=== PATIENT | male | born 1970 | race Two or more races ===

== ENCOUNTER 2020-12-07 14:10 | Emergency (ER) | payer BC ==
--- NOTE | 2020-12-07 15:33 | EDM.PDOC ---
ED HPI GENERAL MEDICAL PROBLEM - General Chief Complaint: Lower Extremity Injury/Pain Stated Complaint: ROLLED R ANKLE Time Seen by Provider: 12/07/20 14:21 Source of Information: Reports: Patient, RN Notes Reviewed History Limitations: Reports: No Limitations - History of Present Illness INITIAL COMMENTS - FREE TEXT/NARRATIVE: Patient is a 50-year-old male presenting to the emergency department with complaints of pain and swelling to his right ankle. States that he rolled it Arturo evening and has been having pain and swelling since that time. He has been icing elevating over the weekend and thinks that the pain is improving but he wants to ensure that it is not fractured. He states that he was intoxicated at the time of the injury so he is not completely sure of the mechanism of injury, however he does know that he misstepped on a stair. His thinks he likely inverted his ankle. Denies any previous injuries to this ankle. He has been able to ambulate since the time of the injury. right ankle Pain Score (Numeric/FACES): 4 - Related Data Allergies Allergy/AdvReac Type Severity Reaction Status Date / Time No Known Allergies Allergy Verified 12/07/20 14:35 Home Meds: Home Meds . [Unable to Verify Home Med List] 12/07/20 [History] Past Medical History Cardiovascular History: Reports: Hypertension Social & Family History - Tobacco Use Tobacco Use Status *Q: Never Tobacco User - Recreational Drug Use Recreational Drug Use: No Review of Systems - Review of Systems Review Of Systems: Comprehensive ROS is negative, except as noted in HPI. ED EXAM, GENERAL - Physical Exam Exam: See Below Exam Limited By: No Limitations General Appearance: Alert, WD/WN, No Apparent Distress Respiratory/Chest: No Respiratory Distress, Lungs Clear, Normal Breath Sounds, No Accessory Muscle Use, Chest Non-Tender Cardiovascular: Normal Peripheral Pulses, Regular Rate, Rhythm, No Edema, No Gallop, No JVD, No Murmur, No Rub Extremities: Other (Generalized swelling to the right ankle. Ecchymosis and tenderness to palpation to the anterior aspect of the ankle. No obvious deformity. CMS intact distal to the injury.) Neurological: Alert, Oriented, CN II-XII Intact, Normal Cognition, Normal Gait, Normal Reflexes, No Motor/Sensory Deficits Psychiatric: Normal Affect, Normal Mood Course - Vital Signs Last Recorded V/S: Last Vital Signs Temp 97.3 F 02/14/21 14:32 Pulse 63 12/07/20 14:32 Resp 18 12/07/20 14:32 BP 161/103 H 12/07/20 14:32 Pulse Ox - Orders/Labs/Meds Orders: Active Orders 24 hr Category Date Time Status Ankle Min 3V Rt [CR] Stat Exams 12/07/20 14:38 Taken - Re-Assessments/Exams Free Text/Narrative Re-Assessment/Exam: 12/07/20 16:10 Official radiologist read of the x-ray of the right ankle shows no acute fractures. Recommend that he continue to Duarte wrap ice and elevate. Tylenol ibuprofen as needed. Discharge instructions as documented. Departure - Departure Time of Disposition: 16:11 Disposition: Home, Self-Care 01 Condition: Good Clinical Impression: Sprain of ankle, right Qualifiers: Encounter type: initial encounter Involved ligament of ankle: unspecified ligament Qualified Code(s): S93.401A - Sprain of unspecified ligament of right ankle, initial encounter - Discharge Information *PRESCRIPTION DRUG MONITORING PROGRAM REVIEWED*: No *COPY OF PRESCRIPTION DRUG MONITORING REPORT IN PATIENT GILMA: No Instructions: Ankle Sprain, [id number] Referrals: Kathy Walker, [employer] [facility] [facility] [Primary Care Provider] - Forms: ED Department Discharge Additional Instructions: You were seen in the emergency department today for evaluation with regards to pain and swelling to your right ankle. X-rays are completed and showed no fracture. It is likely at you have sprained your ankle. Recommend that you continue to use the Duarte wrap, ice, and elevation as needed. [id number] Tylenol or ibuprofen may be used for discomfort. If you continue to have significant discomfort after 1 week, recommend follow-up in the clinic for reevaluation. Return to ER as needed. Sepsis Event Note (ED) - Evaluation Sepsis Screening Result: No Definite Risk - Focused Exam Vital Signs: Vital Signs Temp Pulse Resp BP 12/07/20 14:32 97.3 F 63 18 161/103 H - My Orders Last 24 Hours: My Active Orders 12/07/20 14:38 Ankle Min 3V Rt [CR] Stat - Assessment/Plan Last 24 Hours: My Active Orders 12/07/20 14:38 Ankle Min 3V Rt [CR] Stat
--- NOTE | 2020-12-08 11:14 | CR ---
Right ankle: 3 views centered to the right ankle were obtained. Comparison: No prior ankle study. Irregularity is noted within the posterior malleolus most likely related to previous ankle injury. Ankle mortise is symmetric. No definite acute fracture, dislocation or other bony abnormality is apparent. Soft tissue swelling is noted. Impression: 1. Soft tissue swelling. 2. Findings most likely due to old injury within the posterior malleolus. 3. No acute osseous abnormality is appreciated. Diagnostic code #2 I agree with preliminary report from [facility], finalized on 0 12/07/20, 4:[address] REPORTER DESI
== END 2020-12-07 16:18 | disposition home or self-care (01) ==
LOC: JD.ED 14:10
DX: S93.401A Sprain of unspecified ligament of right ankle, initial encounter (principal); I10 Essential (primary) hypertension; X50.1XXA Overexertion from prolonged static or awkward postures, initial encounter
CPT/HCPCS: 73610-26-RT; 73610-RT; 99282; 99283

== ENCOUNTER 2020-12-30 22:57 | Emergency (ER) | payer BC ==
[2020-12-30] MEDS ORDERED: Sodium Chloride 0.9% 10 ML Syringe FLUSH PRN (23:10)
[2020-12-30] MEDS ORDERED: HYDROmorphone 1 MG/ML Syringe IVPUSH ONE (23:11)
[2020-12-30] MEDS ORDERED: Ketorolac 30 MG/ML SDV IVPUSH ONE (23:11)
--- NOTE | 2020-12-30 23:17 | EDM.PDOC ---
ED HPI GENERAL MEDICAL PROBLEM - General Chief Complaint: Lower Extremity Injury/Pain Stated Complaint: hip injury Time Seen by Provider: 12/30/20 23:05 Source of Information: Reports: Patient, Family History Limitations: Reports: No Limitations - History of Present Illness INITIAL COMMENTS - FREE TEXT/NARRATIVE: The patient presents with left hip and pelvis pain. This has been going on for a couple of days. He does not remember hurting it like falling, lifting or twisting. The pain is not in his back. He has no numbness or weakness. He has no fever, chills, cough, chest pain, shortness of breath, abdominal pain, nausea or vomiting. He has never had trouble with the hip before. He did sprain his right ankle a week ago. He is not sure if he was favoring that ankle and putting more pressure on the left hip. Onset: Gradual Duration: Day(s): (2) Location: Reports: Lower Extremity, Left (hip and pelvis) Quality: Reports: Sharp Severity: Severe Improves with: Reports: Immobilization Worsens with: Reports: Movement Context: Denies: Trauma Associated Symptoms: Reports: No Other Symptoms Left Hip Pain Score (Numeric/FACES): 10 - Related Data Allergies Allergy/AdvReac Type Severity Reaction Status Date / Time No Known Allergies Allergy Verified 12/30/20 23:08 Home Meds: Home Meds Citalopram Hydrobromide [Celexa] 40 mg PO DAILY 12/30/20 [History] Potassium Chloride 20 meq PO DAILY 12/30/20 [History] Spironolactone 50 mg PO DAILY 12/30/20 [History] amLODIPine Besylate [Amlodipine Besylate] 10 mg PO DAILY 12/30/20 [History] atenoloL [Atenolol] 50 mg PO DAILY 12/30/20 [History] Past Medical History Cardiovascular History: Reports: Hypertension Social & Family History - Tobacco Use Tobacco Use Status *Q: Never Tobacco User Second Hand Smoke Exposure: No - Caffeine Use Caffeine Use: Reports: Coffee - Alcohol Use Days Per Week of Alcohol Use: 7 Number of Drinks Per Day: 2 Total Drinks Per Week: 14 - Recreational Drug Use Recreational Drug Use: No Review of Systems - Review of Systems Review Of Systems: See Below Constitutional: Reports: No Symptoms Eyes: Reports: No Symptoms Ears: Reports: No Symptoms Nose: Reports: No Symptoms Mouth/Throat: Reports: No Symptoms Respiratory: Reports: No Symptoms Cardiovascular: Reports: No Symptoms GI/Abdominal: Reports: No Symptoms Genitourinary: Reports: No Symptoms Musculoskeletal: Reports: Other (Left hip and pelvis pain) ED EXAM, GENERAL - Physical Exam Exam: See Below Exam Limited By: No Limitations General Appearance: Alert, Mild Distress Ears: Normal External Exam Nose: Normal Inspection Head: Atraumatic, Normocephalic Neck: Normal Inspection Respiratory/Chest: No Respiratory Distress, Lungs Clear, Normal Breath Sounds Cardiovascular: Regular Rate, Rhythm, No Edema, No Murmur GI/Abdominal: Soft, Non-Tender, No Organomegaly, No Mass Back Exam: Normal Inspection Extremities: Other (Mild pain to the left hip. He has more pain with a strait leg raise. He has good sensation and pulses distally.) Course - Vital Signs Last Recorded V/S: Last Vital Signs Temp 97.4 F 12/30/20 23:03 Pulse 75 12/30/20 23:46 Resp 20 12/30/20 23:46 BP 182/118 H 12/30/20 23:46 Pulse Ox 100 12/30/20 23:46 - Orders/Labs/Meds Orders: Active Orders 24 hr Category Date Time Status Cardiac Monitoring [RC] . DIRECTED Care 12/30/20 23:10 Active Peripheral IV Care [RC] . DIRECTED Care 12/30/20 23:11 Active Pelvis wo Cont [CT] Stat Exams 12/30/20 23:11 Taken VL Duplex Lwr Ext Veins Ltd Lt [US] Stat Exams 12/31/20 00:30 Taken Sodium Chloride 0.9% [Saline Flush] Med 12/30/20 23:10 Active 10 ml FLUSH ASDIRECTED PRN Peripheral IV Insertion Adult [OM.PC] Stat Oth 12/30/20 23:10 Ordered Labs: Laboratory Tests 12/30/20 12/30/20 12/30/20 Range/Units 11:10 11:10 11:10 WBC 5.63 (4.23-9.07) K/mm3 RBC 5.04 (4.63-6.08) M/mm3 Hgb 15.0 (13.7-17.5) gm/dl Hct 42.6 (40.1-51.0) % MCV 84.5 (79.0-92.2) fl MCH 29.8 (25.7-32.2) pg MCHC 35.2 (32.2-35.5) g/dl RDW Std Deviation 37.2 (35.1-43.9) fL Plt Count 230 (163-337) K/mm3 MPV 9.8 (9.4-12.3) fl Neut % (Auto) 45.7 (34.0-67.9) % Lymph % (Auto) 40.0 (21.8-53.1) % Atkinson % (Auto) 11.4 (5.3-12.2) % Eos % (Auto) 2.7 (0.8-7.0) Baso % (Auto) 0.2 (0.1-1.2) % Neut # (Auto) 2.58 (1.78-5.38) K/mm3 Lymph # (Auto) 2.25 (1.32-3.57) K/mm3 Atkinson # (Auto) 0.64 (0.30-0.82) K/mm3 Eos # (Auto) 0.15 (0.04-0.54) K/mm3 Baso # (Auto) 0.01 (0.01-0.08) K/mm3 ESR 6 (0-15) mm/hr D-Dimer, Quantitative 1.17 H (0.19-0.50) mg/L Sodium (136-145) mEq/L Potassium (3.5-5.1) mEq/L Chloride (98-107) mEq/L Carbon Dioxide (21-32) mEq/L Anion Gap (5-15) BUN (7-18) mg/dL Creatinine (0.7-1.3) mg/dL Est Cr Clr Drug Dosing Estimated GFR (MDRD) (>60) mL/min BUN/Creatinine Ratio (14-18) Glucose (74-106) mg/dL Calcium (8.5-10.1) mg/dL Total Bilirubin (0.2-1.0) mg/dL AST (15-37) U/L ALT (16-63) U/L Alkaline Phosphatase (46-116) U/L C-Reactive Protein (<1.0) mg/dL Total Protein (6.4-8.2) g/dl Albumin (3.4-5.0) g/dl Globulin gm/dL Albumin/Globulin Ratio (1-2) 12/30/20 Range/Units 11:10 WBC (4.23-9.07) K/mm3 RBC (4.63-6.08) M/mm3 Hgb (13.7-17.5) gm/dl Hct (40.1-51.0) % MCV (79.0-92.2) fl MCH (25.7-32.2) pg MCHC (32.2-35.5) g/dl RDW Std Deviation (35.1-43.9) fL Plt Count (163-337) K/mm3 MPV (9.4-12.3) fl Neut % (Auto) (34.0-67.9) % Lymph % (Auto) (21.8-53.1) % Atkinson % (Auto) (5.3-12.2) % Eos % (Auto) (0.8-7.0) Baso % (Auto) (0.1-1.2) % Neut # (Auto) (1.78-5.38) K/mm3 Lymph # (Auto) (1.32-3.57) K/mm3 Atkinson # (Auto) (0.30-0.82) K/mm3 Eos # (Auto) (0.04-0.54) K/mm3 Baso # (Auto) (0.01-0.08) K/mm3 ESR (0-15) mm/hr D-Dimer, Quantitative (0.19-0.50) mg/L Sodium 137 (136-145) mEq/L Potassium 3.0 L (3.5-5.1) mEq/L Chloride 98 (98-107) mEq/L Carbon Dioxide 22 (21-32) mEq/L Anion Gap 20.0 H (5-15) BUN 20 H (7-18) mg/dL Creatinine 1.0 (0.7-1.3) mg/dL Est Cr Clr Drug Dosing TNP Estimated GFR (MDRD) > 60 (>60) mL/min BUN/Creatinine Ratio 20.0 H (14-18) Glucose 113 H (74-106) mg/dL Calcium 9.7 (8.5-10.1) mg/dL Total Bilirubin 0.7 (0.2-1.0) mg/dL AST 23 (15-37) U/L ALT 30 (16-63) U/L Alkaline Phosphatase 111 (46-116) U/L C-Reactive Protein 0.3 (<1.0) mg/dL Total Protein 8.1 (6.4-8.2) g/dl Albumin 4.3 (3.4-5.0) g/dl Globulin 3.8 gm/dL Albumin/Globulin Ratio 1.1 (1-2) - Re-Assessments/Exams Free Text/Narrative Re-Assessment/Exam: 12/30/20 23:16 I ordered an IV saline lock, labs, dilaudid 1mg IV, toradol 30mg IV and a CT of his pelvis. 12/31/20 01:36 His CBC looks good. His ESR and CRP are normal. His K was low at 3. His is on potassium. His D-dimer was elevated at 1.17. I added and US to the left leg. His CT shows no hip fracture or dislocation. Mild osteoarthritis of bother SI joints. Mild osteoarthritis of both hips. The US of his left leg shows no evidence of DVT. It appears this could be some osteoarthritis flaring up. I will give him a dose of solu-medrol 125mg IV here and a prescription for some prednisone. I will also give him some hydrocodone for a few days. Departure - Departure Time of Disposition: 01:40 Disposition: Home, Self-Care 01 Condition: Good Clinical Impression: Left hip pain Osteoarthritis of left hip Qualifiers: Osteoarthritis type: primary Qualified Code(s): M16.12 - Unilateral primary osteoarthritis, left hip - Discharge Information *PRESCRIPTION DRUG MONITORING PROGRAM REVIEWED*: Not Applicable *COPY OF PRESCRIPTION DRUG MONITORING REPORT IN PATIENT GILMA: Not Applicable Referrals: PCP,None [Primary Care Provider] - Alireza Rivera MD [Physician] - 1 Week Forms: ED Department Discharge, ED Return to Work/School Form Additional Instructions: Take the prednisone 40mg daily for 5 days. Take the hydrocodone as needed for pain. Follow up with physical therapy this week. Follow up with Dr Rivera within a week if you are not better. Please return if you are worse. Sepsis Event Note (ED) - Evaluation Sepsis Screening Result: No Definite Risk - Focused Exam Vital Signs: Vital Signs Temp Pulse Resp BP Pulse Ox 12/30/20 23:46 75 20 182/118 H 100 12/30/20 23:03 97.4 F 97 20 170/114 H 99 - My Orders Last 24 Hours: My Active Orders 12/30/20 23:10 Cardiac Monitoring [RC] . DIRECTED Sodium Chloride 0.9% [Saline Flush] 10 ml FLUSH ASDIRECTED PRN Peripheral IV Insertion Adult [OM.PC] Stat 12/30/20 23:11 Peripheral IV Care [RC] . DIRECTED Pelvis wo Cont [CT] Stat 12/31/20 00:30 VL Duplex Lwr Ext Veins Ltd Lt [US] Stat - Assessment/Plan Last 24 Hours: My Active Orders 12/30/20 23:10 Cardiac Monitoring [RC] . DIRECTED Sodium Chloride 0.9% [Saline Flush] 10 ml FLUSH ASDIRECTED PRN Peripheral IV Insertion Adult [OM.PC] Stat 12/30/20 23:11 Peripheral IV Care [RC] . DIRECTED Pelvis wo Cont [CT] Stat 12/31/20 00:30 VL Duplex Lwr Ext Veins Ltd Lt [US] Stat
[2020-12-30] MEDS ORDERED: HYDROmorphone 0.5 MG/0.5 ML Syringe IVPUSH ONE (23:49)
[2020-12-31] MEDS ORDERED: HYDROmorphone 1 MG/ML Syringe IVPUSH ONE (00:48)
[2020-12-31] MEDS ORDERED: methylPREDNISolone Sodium Succinate 125 MG/2 ML SDV IVPUSH ONE (01:36)
--- NOTE | 2020-12-31 07:15 | CT ---
CT pelvis Technique: Multiple axial sections were obtained from above the dome of the iliac crests inferiorly through the pubic symphysis. Intravenous contrast was not utilized. Reconstructed coronal and sagittal images were obtained. Comparison: No prior pelvis study is available. Findings: Mild degenerative change is noted within both hips. Scattered degenerative change is seen within the lumbar spine most prominent at L5-S1 with disc space narrowing and vacuum phenomena. Lesser vacuum phenomenon is noted at L3-4 with the disc space narrowing. Mild degenerative change is noted within both sacroiliac joints. No intrapelvic abnormality is appreciated. No surrounding soft tissue abnormality is appreciated within the muscles surrounding the hips. Impression: 1. Mild degenerative change as noted above. 2. Nothing acute is seen. Diagnostic code #2 I agree with preliminary report from [facility], finalized on 12/31/20, 1:21 AM [employer]
--- NOTE | 2020-12-31 07:16 | US ---
Left lower extremity deep venous ultrasound: Duplex and color Doppler evaluation was obtained of the left common femoral, proximal greater saphenous, deep femoral, superficial femoral, popliteal, posterior tibial and peroneal veins. Right common femoral vein was also evaluated. Findings: Normal phasic flow, augmentation and compression is seen. Impression: 1. No findings of deep venous thrombosis is seen within the left lower extremity or common right femoral vein. Diagnostic code #1 I agree with preliminary report from [facility], finalized on 12/31/20, 2:26 AM Central Standard Time
== END 2020-12-31 01:52 | disposition home or self-care (01) ==
LOC: JD.ED 22:57
DX: M16.12 Unilateral primary osteoarthritis, left hip (principal); I10 Essential (primary) hypertension; Z79.899 Other long term (current) drug therapy
CPT/HCPCS: 36415; 72192; 80053; 85025; 85379; 85652; 86140; 93971; 96374; 96375; 96376; 99284; J1170; J1885; J2930

== ENCOUNTER 2022-08-14 09:07 | Emergency (ER) | payer BC, OTHER ==
[2022-08-14] MEDS ORDERED: Oxymetazoline 0.05% Nasal Spray 30 ML Bottle NAS ONE (09:31)
[2022-08-14] MEDS ORDERED: Sodium Chloride 0.9% 10 ML Syringe FLUSH PRN (09:48)
[2022-08-14] MEDS ORDERED: Labetalol 100 MG/20 ML MDV IVPUSH ONE (09:48)
== END 2022-08-14 11:26 | disposition home or self-care (01) ==
LOC: JD.ED 09:07
DX: R04.0 Epistaxis (principal); I10 Essential (primary) hypertension; E66.9 Obesity, unspecified; Z68.36 Body mass index [BMI] 36.0-36.9, adult; Z79.899 Other long term (current) drug therapy; Z90.49 Acquired absence of other specified parts of digestive tract
CPT/HCPCS: 30901; 96374; 99283; A9270; C9046; J3490